=== PATIENT | female | born 1975 | race Caucasian/White ===

== ENCOUNTER 2016-10-05 03:41 | Emergency (ER) | payer OTHER ==
[~2016-10-05] VITALS: Ht 157.5 cm; Wt 54.5 kg
[~2016-10-05 03:41] MED LIST: BACTRIM,SEPT1 TABLET PO; INDOCIN25 MG PO; KEFLEX500 MG PO; MOTRIN600 MG PO; NOHOMEMEDS
[2016-10-05 06:54] LABS: EOSINOPHIL (%) 0.1 % (0-5); IMMATURE GRANULOCYTE (%) 0.2 % (0.0-0.7); IMMATURE GRANULOCYTE COUNT 0.2 K/uL; LYMPHOCYTE COUNT 0.8 K/uL (1.0-2.8); MCH 28.5 PG (29.0-34.0); MCHC 35.6 G/DL (30.0-36.0); MCV 80.2 FL (83-99); MEAN PLAT.VOLUME 10.7 uM^3 (9.5-12.4); MONOCYTE (%) 5.6 % (3-12); MONOCYTE COUNT 0.6 K/uL (0-0.8); NEUTROPHIL (%) 87.2 % (45-76); NEUTROPHIL COUNT 9.6 K/uL (1.8-6.4); PLATELET COUNT 222 K/uL (156-360); RBC DIS.WIDTH-CV 14.9 % (11.8-14.6); RED BLOOD COUNT 4.49 M/uL (3.80-5.20)
[2016-10-05 07:02] LABS: CHLORIDE 101 mEq/L (99-109)
[2016-10-05 07:03] LABS: SODIUM 135 mEq/L (136-147)
[2016-10-05 07:04] LABS: GLUCOSE 113 mg/dL (70-99)
[2016-10-05 07:06] LABS: ANION GAP 13 MEQ/L (2-14)
[2016-10-05 07:08] LABS: GFR ESTIMATE (CALCULATED) > 59 mL/min/
[2016-10-05 07:09] LABS: UREA NITROGEN (BUN) 10 mg/dL (9-23)
[2016-10-05] MEDS ORDERED: BACTRIM,SEPT1 TABLET PO (08:41)
[2016-10-05] MEDS ORDERED: LIDOCAINE700 MG TD (08:41)
[2016-10-05] MEDS ORDERED: KEFLEX500 MG PO (08:41)
[2016-10-05] MEDS ORDERED: MOTRIN600 MG PO (08:41)
[2016-10-05 08:51] VITALS: BP 111/71
== END 2016-10-05 08:51 | disposition home or self-care (01) ==
LOC: EME 03:41
PROVIDERS: Emergency Medicine
DX: L03.116 Cellulitis of left lower limb (principal); F17.200 Nicotine dependence, unspecified, uncomplicated
CPT/HCPCS: 73590; 80048; 85025; 87040; 87077; 87186; 87801; 93971; 99281; 99284; J1885

== ENCOUNTER 2016-10-30 22:01 | Inpatient (IN) | payer OTHER ==
[~2016-10-30] VITALS: Ht 157.5 cm; Wt 57.9 kg
[~2016-10-30 22:01] MED LIST changes: +LIDOCAINE700 MG TD
[2016-10-30 23:02] LABS: HEMATOCRIT 37.7 % (36.0-46.0); MCH 28.1 PG (29.0-34.0); MCV 82.9 FL (83-99); MEAN PLAT.VOLUME 9.4 uM^3 (9.5-12.4); PLATELET COUNT 203 K/uL (156-360); RBC DIS.WIDTH-CV 15.6 % (11.8-14.6); RBC DIS.WIDTH-SD 46.6 % (39-53); RED BLOOD COUNT 4.55 M/uL (3.80-5.20); WHITE BLOOD COUNT 4.7 K/uL (4.1-10.2)
[2016-10-30 23:12] LABS: CHLORIDE 102 mEq/L (99-109); POTASSIUM 4.1 mEq/L (3.7-5.4); SODIUM 136 mEq/L (136-147)
[2016-10-30 23:14] LABS: GLUCOSE 106 mg/dL (70-99)
[2016-10-30 23:15] LABS: ANION GAP 9 MEQ/L (2-14)
[2016-10-30 23:17] LABS: SERUM ETHYL ALCOHOL < 10 mg/dL
[2016-10-30 23:18] LABS: GFR ESTIMATE (CALCULATED) > 59 mL/min/; UREA NITROGEN (BUN) 8 mg/dL (9-23)
[2016-10-30 23:27] LABS: AMPHETAMINE NEGATIVE (500 ng/mL); BARBITURATES NEGATIVE (200 ng/mL); BENZODIAZEPINES NEGATIVE (150 ng/mL); COCAINE PRESUMPTIVE POSITIVE (150 ng/mL); INTERNAL CONTROLS VALID? YES; METHADONE NEGATIVE (200 ng/mL); METHAMPHETAMINE PRESUMPTIVE POSITIVE (500 ng/mL); OPIATES (MORPHINE) NEGATIVE (100 ng/mL); OXYCODONE NEGATIVE (100 ng/mL); PHENCYCLIDINE NEGATIVE (25 ng/mL); PROPOXYPHENE NEGATIVE (300 ng/mL); THC CANNABINOIDS NEGATIVE (50 ng/mL); TRICYCLIC ANTIDEPRESSANTS NEGATIVE (300 ng/mL)
[2016-10-30 23:28] LABS: ADD MEDTOX COMMENT Y
[2016-10-30 23:46] LABS: QUANTITATIVE HCG < 4.0 MIU/ML
[2016-10-31 02:51] VITALS: BP 101/64
[2016-10-31 07:57] VITALS: BP 92/55
[2016-10-31 11:14] VITALS: BP 111/60
[2016-10-31 16:15] VITALS: BP 143/78
[2016-11-01 08:13] VITALS: BP 121/57
[2016-11-01 15:59] VITALS: BP 98/55
[2016-11-02 07:58] VITALS: BP 114/72
[2016-11-02 15:32] VITALS: BP 98/57
[2016-11-03] MEDS ORDERED: DOXYCYCLINE HY100 M3 PO (09:50)
[2016-11-03 09:51] VITALS: BP 114/65
== END 2016-11-03 11:39 | disposition home or self-care (01) | DRG 876 ==
LOC: EME 22:01 → 1WEST 10-31 00:25 → EDOF 10-31 00:25 → 1WEST 10-31 02:55
PROC: 0JBP0ZZ Excision of Left Lower Leg Subcutaneous Tissue and Fascia, Open Approach (ICD-10-PCS; principal; 2016-11-01)
DX: F33.9 Major depressive disorder, recurrent, unspecified (principal); R45.851 Suicidal ideations; F11.23 Opioid dependence with withdrawal; T81.4XXA Infection following a procedure, initial encounter; L03.116 Cellulitis of left lower limb; B95.62 Methicillin resistant Staphylococcus aureus infection as the cause of diseases classified elsewhere; F14.10 Cocaine abuse, uncomplicated; F15.10 Other stimulant abuse, uncomplicated; F17.210 Nicotine dependence, cigarettes, uncomplicated
CPT/HCPCS: 71020; 80048; 84702; 84999; 85027; 87070; 87075; 87077; 87147; 87186; 87205; 90839; 99281; 99285; G0480; J0574; Q0169

== ENCOUNTER 2016-12-24 01:03 | Emergency (ER) | payer OTHER ==
[~2016-12-24] VITALS: Ht 157.5 cm; Wt 59.0 kg
[~2016-12-24 01:03] MED LIST changes: +DOXYCYCLINE HY100 M3 PO
[2016-12-24] MEDS ORDERED: NARCAN4 MG NS (01:51)
[2016-12-24 03:01] VITALS: BP 115/68
== END 2016-12-24 03:01 | disposition home or self-care (01) ==
LOC: EME 01:03 → EDBD 01:03 → EME 03:01
DX: T40.1X1A Poisoning by heroin, accidental (unintentional), initial encounter (principal); F17.200 Nicotine dependence, unspecified, uncomplicated; Z88.6 Allergy status to analgesic agent
CPT/HCPCS: 93005; 99281; 99283

== ENCOUNTER 2017-03-03 23:21 | Inpatient (IN) | payer OTHER ==
[~2017-03-03] VITALS: Ht 160 cm; Wt 69.0 kg
[~2017-03-03 23:21] MED LIST changes: +NARCAN4 MG NS
[2017-03-04 00:41] LABS: HEMATOCRIT 40.6 % (36.0-46.0); MCH 26.7 PG (29.0-34.0); MCHC 32.5 G/DL (30.0-36.0); MCV 82.2 FL (83-99); MEAN PLAT.VOLUME 9.2 uM^3 (9.5-12.4); PLATELET COUNT 370 K/uL (156-360); RBC DIS.WIDTH-CV 14.7 % (11.8-14.6); RBC DIS.WIDTH-SD 44.3 % (39-53); RED BLOOD COUNT 4.94 M/uL (3.80-5.20); WHITE BLOOD COUNT 7.5 K/uL (4.1-10.2)
[2017-03-04 00:53] LABS: CHLORIDE 100 mEq/L (99-109); POTASSIUM 3.9 mEq/L (3.7-5.4); SODIUM 139 mEq/L (136-147)
[2017-03-04 00:56] LABS: GLUCOSE 149 mg/dL (70-99)
[2017-03-04 00:57] LABS: ANION GAP 14 MEQ/L (2-14)
[2017-03-04 00:58] LABS: TOTAL BILIRUBIN 0.6 mg/dL (0.0-1.0)
[2017-03-04 00:59] LABS: ALKALINE PHOSPHATASE 100 IU/L (3-129); GFR ESTIMATE (CALCULATED) 48 mL/min/
[2017-03-04 01:00] LABS: UREA NITROGEN (BUN) 6 mg/dL (9-23)
[2017-03-04 01:12] LABS: QUANTITATIVE HCG < 4.0 MIU/ML
[2017-03-04 03:59] LABS: INTER. NORMALIZED RATIO 1.1; PROTHROMBIN TIME 11.4 (9.2-11.2); PTT 27.4 (25-32)
[2017-03-04 04:04] LABS: LIPASE 13 U/L (1.0-51.0)
[2017-03-04 06:12] LABS: TROP-I INTERPRETATION NEGATIVE; TROPONIN-I < 0.01 ng/mL (0.0-0.30)
[2017-03-04 15:01] LABS: TROP-I INTERPRETATION NEGATIVE; TROPONIN-I < 0.01 ng/mL (0.0-0.30)
[2017-03-04 15:24] VITALS: BP 134/93
[2017-03-04 15:34] VITALS: BP 134/76
[2017-03-04 19:37] LABS: TROP-I INTERPRETATION NEGATIVE; TROPONIN-I < 0.01 ng/mL (0.0-0.30)
[2017-03-04 23:53] VITALS: BP 125/76
[2017-03-05] VITALS (7 sets, daily range): BP systolic 107–146; BP diastolic 53–83
[2017-03-05 07:22] LABS: HEMATOCRIT 33.1 % (36.0-46.0); MCH 27.3 PG (29.0-34.0); MCHC 33.5 G/DL (30.0-36.0); MCV 81.5 FL (83-99); MEAN PLAT.VOLUME 8.9 uM^3 (9.5-12.4); PLATELET COUNT 320 K/uL (156-360); RBC DIS.WIDTH-CV 14.6 % (11.8-14.6); RBC DIS.WIDTH-SD 43.8 % (39-53); RED BLOOD COUNT 4.06 M/uL (3.80-5.20); WHITE BLOOD COUNT 4.6 K/uL (4.1-10.2)
[2017-03-05 07:46] LABS: ANION GAP 7 MEQ/L (2-14); CHLORIDE 107 MEQ/L (99-109); GFR ESTIMATE (CALCULATED) > 59 mL/min/; GLUCOSE 118 mg/dL (70-99); POTASSIUM 4.1 MEQ/L (3.7-5.4); SAMPLE HEMOLYSIS CHECK 0; SAMPLE ICTERIC CHECK 0; SAMPLE LIPEMIA CHECK 0; SODIUM 138 MEQ/L (136-147); UREA NITROGEN (BUN) 4 mg/dL (9-23)
[2017-03-05 11:58] LABS: HBSG INDEX 0.24
[2017-03-05 12:00] LABS: ANTI-HEPATITIS A VIRUS (IGM) Nonreactive; HAV INDEX 0.35
[2017-03-05 12:01] LABS: ANTI-HEPATITIS B CORE (IGM) Nonreactive; HBC IgM INDEX 0.35; HIV INDEX 0.09; HIV-1/2 AB/AG COMBO Nonreactive
[2017-03-05 12:02] LABS: HPCA INDEX 14.26
[2017-03-06 03:48] VITALS: BP 136/89
[2017-03-06 07:03] LABS: MCH 26.3 PG (29.0-34.0); MCHC 32.1 G/DL (30.0-36.0); MCV 82.1 FL (83-99); MEAN PLAT.VOLUME 8.5 uM^3 (9.5-12.4); PLATELET COUNT 313 K/uL (156-360); RBC DIS.WIDTH-CV 14.5 % (11.8-14.6); RBC DIS.WIDTH-SD 43.3 % (39-53); RED BLOOD COUNT 4.14 M/uL (3.80-5.20); WHITE BLOOD COUNT 4.1 K/uL (4.1-10.2)
[2017-03-06 08:00] VITALS: BP 132/80
[2017-03-06 11:22] VITALS: BP 138/74
[2017-03-06 16:00] VITALS: BP 110/66
[2017-03-06 19:30] VITALS: BP 126/77
[2017-03-06 20:52] LABS: ANION GAP 8 MEQ/L (2-14); CHLORIDE 106 MEQ/L (99-109); GFR ESTIMATE (CALCULATED) > 59 mL/min/; POTASSIUM 4.1 MEQ/L (3.7-5.4); SAMPLE HEMOLYSIS CHECK 0; SAMPLE ICTERIC CHECK 0; SAMPLE LIPEMIA CHECK 0; SODIUM 139 MEQ/L (136-147); UREA NITROGEN (BUN) 6 mg/dL (9-23)
[2017-03-06 21:02] LABS: GLUCOSE 82 mg/dL (70-99)
[2017-03-06 23:23] VITALS: BP 125/80
[2017-03-07 03:34] VITALS: BP 142/84
[2017-03-07 10:29] LABS: HEMATOCRIT 38.5 % (36.0-46.0); MCH 26.9 PG (29.0-34.0); MCHC 32.5 G/DL (30.0-36.0); MCV 82.8 FL (83-99); MEAN PLAT.VOLUME 8.7 uM^3 (9.5-12.4); PLATELET COUNT 382 K/uL (156-360); RBC DIS.WIDTH-CV 14.6 % (11.8-14.6); RBC DIS.WIDTH-SD 43.4 % (39-53); RED BLOOD COUNT 4.65 M/uL (3.80-5.20)
[2017-03-07 10:53] LABS: ANION GAP 8 MEQ/L (2-14); CHLORIDE 105 MEQ/L (99-109); GFR ESTIMATE (CALCULATED) > 59 mL/min/; GLUCOSE 88 mg/dL (70-99); POTASSIUM 4.4 MEQ/L (3.7-5.4); SAMPLE HEMOLYSIS CHECK 0; SAMPLE ICTERIC CHECK 0; SAMPLE LIPEMIA CHECK 0; SODIUM 140 MEQ/L (136-147); UREA NITROGEN (BUN) 7 mg/dL (9-23)
[2017-03-07 11:19] VITALS: BP 169/82
[2017-03-07 11:27] VITALS: BP 150/86
[2017-03-07 15:52] VITALS: BP 136/88
[2017-03-07 16:19] LABS: AMPHETAMINES QUANT VALUE 0 NG/ML; BARBITUATES QUANT VALUE 0 NG/ML; BENZODIAZEPINES QUANT VALUE 0 NG/ML; BENZODIAZEPINES, URINE SCREEN Negative (200 ng/mL); MARIJUANA QUANT VALUE 0 NG/ML; PHENCYCLIDINE QUANT VALUE 0 NG/ML
[2017-03-07 21:13] LABS: ANION GAP 9 MEQ/L (2-14); CHLORIDE 105 MEQ/L (99-109); GFR ESTIMATE (CALCULATED) > 59 mL/min/; GLUCOSE 108 mg/dL (70-99); POTASSIUM 4.1 MEQ/L (3.7-5.4); SAMPLE HEMOLYSIS CHECK 0; SAMPLE ICTERIC CHECK 0; SAMPLE LIPEMIA CHECK 0; SODIUM 139 MEQ/L (136-147); UREA NITROGEN (BUN) 5 mg/dL (9-23)
[2017-03-08 00:08] VITALS: BP 123/72
[2017-03-08 08:12] VITALS: BP 137/87
[2017-03-08 08:25] LABS: HEMATOCRIT 37.6 % (36.0-46.0); MCH 26.6 PG (29.0-34.0); MCHC 32.4 G/DL (30.0-36.0); MCV 81.9 FL (83-99); MEAN PLAT.VOLUME 9.9 uM^3 (9.5-12.4); PLATELET COUNT 335 K/uL (156-360); RBC DIS.WIDTH-CV 14.4 % (11.8-14.6); RBC DIS.WIDTH-SD 42.7 % (39-53); RED BLOOD COUNT 4.59 M/uL (3.80-5.20); WHITE BLOOD COUNT 4.6 K/uL (4.1-10.2)
[2017-03-08 08:47] LABS: ANION GAP 10 MEQ/L (2-14); CHLORIDE 107 MEQ/L (99-109); POTASSIUM 4.1 MEQ/L (3.7-5.4); SAMPLE HEMOLYSIS CHECK 0; SAMPLE ICTERIC CHECK 0; SAMPLE LIPEMIA CHECK 0; SODIUM 141 MEQ/L (136-147)
[2017-03-08 08:52] LABS: GFR ESTIMATE (CALCULATED) > 59 mL/min/; GLUCOSE 98 mg/dL (70-99); UREA NITROGEN (BUN) 6 mg/dL (9-23)
[2017-03-08 11:56] VITALS: BP 128/81
[2017-03-08] MEDS ORDERED: NICOTINE PATCH1 EAC2 TD (16:52)
[2017-03-08] MEDS ORDERED: ZYVOX600 MG PO (16:52)
== END 2017-03-08 17:47 | disposition home or self-care (01) | DRG 814 ==
LOC: EME 23:21 → 3EAST 03-04 08:57 → EDOF 03-04 08:57 → 3EAST 03-04 15:10
PROVIDERS: Hospitalist; Internal Medicine; Physician Assistant
PROC: 079P30Z Drainage of Spleen with Drainage Device, Percutaneous Approach (ICD-10-PCS; principal; 2017-03-04)
DX: D73.3 Abscess of spleen (principal); J18.0 Bronchopneumonia, unspecified organism; J90 Pleural effusion, not elsewhere classified; M86.662 Other chronic osteomyelitis, left tibia and fibula; F11.20 Opioid dependence, uncomplicated; T84.7XXD Infection and inflammatory reaction due to other internal orthopedic prosthetic devices, implants and grafts, subsequent encounter; B95.62 Methicillin resistant Staphylococcus aureus infection as the cause of diseases classified elsewhere; Z91.5 Personal history of self-harm; F17.210 Nicotine dependence, cigarettes, uncomplicated; F19.10 Other psychoactive substance abuse, uncomplicated; F32.9 Major depressive disorder, single episode, unspecified; J98.11 Atelectasis; Z81.8 Family history of other mental and behavioral disorders; R01.1 Cardiac murmur, unspecified; R11.0 Nausea; L03.90 Cellulitis, unspecified
CPT/HCPCS: 49405; 71020; 71250; 74177; 80048; 80048 91; 80053; 80074; 80202; 80306 90; 83605; 83690; 84484; 84702; 85027; 85610; 85651; 85730; 86703; 86900; 86901; 87040; 87070; 87075; 87077; 87147; 87186; 87205; 89051; 93005; 93306; 99281; 99285; C1769; J1644; J2270; J2405; J2543; J3010; J3370; J7030; J7040; J7042; J7050